=== PATIENT | male | born 1995 | race Caucasian/White ===

== ENCOUNTER → 2021-11-14 | Outpatient (CLI) | payer OTHER ==
[~2021-11-14] MED LIST: CEFU50SU PO; ERYT1OIN LEFTEYE; HYDACE5 PO; PROM12.5S PR
== END ==
LOC: LAB SHORT 15:32
DX: R36.9 Urethral discharge, unspecified (principal)

== ENCOUNTER → 2021-11-18 | Outpatient (CLI) | payer OTHER ==
[2021-11-20 01:07] LABS: CHLAMYDIA TRACHOMATIS, NAA Negative (Negative)
== END | disposition home or self-care (01) ==
LOC: LAB SHORT 09:38 → LAB 09:38
PROVIDERS: Family Medicine
DX: R30.9 Painful micturition, unspecified (principal)
CPT/HCPCS: 87086; 87491; 87591